=== PATIENT | female | born 1970 | race Caucasian/White ===

== ENCOUNTER 2016-11-18 16:28 | Observation (INO) | payer OTHER ==
--- NOTE | 2016-11-18 17:12 | PDOC ---
History of Present Illness - General History Source: Patient Exam Limitations: No Limitations <Mayra Roldan - Last Filed: 11/18/16 17:56> - History of Present Illness Initial Comments: 11/18/16 18:01 The patient is a 46 year old female with no past medical hx who was send to the ED from her PCP for a blood transfusion. The patient states 8 days ago she started to feel very cold, lightheaded, and tired. The patient reports she started her menstrual cycle on Sunday (8 days ago) and started to notice her symptoms. She reports she has a hx of heavy menses. She notes a few days later her family member said she looked very pale and did not look well. She notes she then made an appointment for a physical with Dr. Carter. She states Dr. Carter called her after her bloodwork came in and reports her hemoglobin was a level of 4.9. She reports her baseline hemoglobin levels are 10-11. She states she then went back in three days ago for new blood work. She states Dr. Carter called her today to go to the ED for a transfusion. The patient denies chest pain, SOB, headache The patient denies abdominal pain, nausea, vomiting The patient denies hematochezia, melena PCP: Dr. Carter <Seema Oliveira - Last Filed: 11/18/16 18:29> - General Chief Complaint: Blood Transfusion Stated Complaint: PCP SENT/BLOOD TRANSFUSION Time Seen by Provider: 11/18/16 16:46 Past History - Past Medical History Anemia: Yes - Psycho/Social/Smoking Cessation Hx Suicidal Ideation: No Smoking History: Current every day smoker Have you smoked in the past 12 months: Yes Number of Cigarettes Smoked Daily: 7 Information on smoking cessation initiated: No <Mayra Roldan - Last Filed: 11/18/16 17:56> <Seema Oliveira - Last Filed: 11/18/16 18:29> - Past Medical History Allergies/Adverse Reactions: Allergies Allergy/AdvReac Type Severity Reaction Status Date / Time cefaclor [From Ceclor] Allergy Severe Difficulty Verified 11/18/16 16:30 Breathing Home Medications: Ambulatory Orders NK [No Known Home Medication] 11/18/16 Review of Systems - Review of Systems Able to Perform ROS?: Yes Comments:: 11/18/16 18:02 GENERAL/CONSTITUTIONAL:+Tired, cold. No: fever, chills, loss of appetite. HEAD, EYES, EARS, NOSE AND THROAT: No: change in vision, ear pain, discharge, sore throat, throat swelling. CARDIOVASCULAR: No: chest pain, lightheadedness, palpitations, syncope RESPIRATORY: No: cough, shortness of breath, wheezing, hemoptysis, stridor. GASTROINTESTINAL: No: nausea, vomiting, abdominal cramping, diarrhea, rectal bleeding, constipation. GENITOURINARY: No: dysuria, hematuria, frequency, urgency, flank pain. MUSCULOSKELETAL: No: back pain, neck pain, joint pain, muscle swelling or pain SKIN: No: lesions, pallor, rash or easy bruising. NEUROLOGIC:+Lightheaded No: headache, paresthesias ENDOCRINE: No: unexplained weight gain or loss HEMATOLOGIC/LYMPHATIC: No: anemia, easy bleeding, swelling nodes <Seema Oliveira - Last Filed: 11/18/16 18:29> *Physical Exam - Vital Signs Last Vital Signs Temp Pulse Resp BP Pulse Ox 98.1 F 90 17 129/67 97 11/18/16 16:31 11/18/16 16:31 11/18/16 16:31 11/18/16 16:31 11/18/16 16:31 <Mayra Roldan - Last Filed: 11/18/16 17:56> - Vital Signs Last Vital Signs Temp Pulse Resp BP Pulse Ox 98.1 F 90 17 129/67 97 11/18/16 16:31 11/18/16 16:31 11/18/16 16:31 11/18/16 16:31 11/18/16 16:31 - Physical Exam Comments: 11/18/16 18:29 GENERAL: The patient is in no acute distress. HEAD: Normal with no signs of trauma. EYES: PERRLA, EOMI, sclera anicteric, conjunctiva clear. ENT: Ears normal, nares patent, oropharynx clear without exudates. Moist mucous membranes. NECK: Normal range of motion, supple without lymphadenopathy, JVD, or masses. LUNGS: Breath sounds equal, clear to auscultation bilaterally. No wheezes, and no crackles. HEART:Regular rate and rhythm, normal S1 and S2 without murmur, rub or gallop. ABDOMEN: Soft, nontender, normoactive bowel sounds. No guarding, no rebound. EXTREMITIES: Normal range of motion, no edema. No clubbing or cyanosis. No erythema, or tenderness. NEUROLOGICAL: Cranial nerves II through XII grossly intact. Normal speech. No focal neurological deficits. MUSCULOSKELETAL: Back nontender to palpation, no CVA tenderness SKIN: Warm, Dry, normal turgor, no rashes or lesions noted. <Seema Oliveira - Last Filed: 11/18/16 18:29> Heart Score/ECG Review #1 ECG reviewed & interpreted by me at: 17:57 General ECG Interpretation: Sinus Rhythm, Normal Rate, Normal Intervals, No acute ischemic changes <Mayra Roldan - Last Filed: 11/18/16 17:56> ED Treatment Course - LABORATORY CBC & Chemistry Diagram: 11/18/16 17:00 11/18/16 17:00 - RADIOLOGY Radiology Studies Ordered: Category Date Time Status CHEST X-RAY PORTABLE* [RAD] Stat Radiology 11/18/16 16:46 Ordered <Mayra Roldan - Last Filed: 11/18/16 17:56> - LABORATORY CBC & Chemistry Diagram: 11/18/16 17:00 11/18/16 17:00 - ADDITIONAL ORDERS Additional order review: Laboratory Results 11/18/16 11/18/16 11/18/16 17:00 17:00 17:00 INR Sodium 142 Potassium 4.3 Chloride 108 H Carbon Dioxide 28 Anion Gap 6 L BUN 8 Creatinine 0.6 Creat Clearance w eGFR > 60 Random Glucose 90 Calcium 8.5 Total Bilirubin 0.2 AST 23 ALT 30 Alkaline Phosphatase 88 Total Protein 6.9 Albumin 3.9 Serum , Qual Negative Crossmatch See Detail 11/18/16 17:00 INR 1.13 Sodium Potassium Chloride Carbon Dioxide Anion Gap BUN Creatinine Creat Clearance w eGFR Random Glucose Calcium Total Bilirubin AST ALT Alkaline Phosphatase Total Protein Albumin Serum , Qual Crossmatch 11/18/16 17:00 RBC 2.69 L MCV 67.0 L MCHC 29.3 L RDW 23.1 H MPV 8.4 Neutrophils % 66.9 Lymphocytes % 24.3 Monocytes % 5.9 Eosinophils % 2.2 Basophils % 0.7 <Seema Oliveira - Last Filed: 11/18/16 18:29> Medical Decision Making - Medical Decision Making 11/18/16 17:11 A portion of this note was documented by scribe services under my direction. I have reviewed the details of the note, within reason, and agree with the documentation with the following case summary and management plan written by me. Nursing documentation reviewed and incorporated into medical decision making This is a 46 yo F with a history of anemia (baseline 10-11) Pt has noted that she has been weak, dizzy and cold for the past few days Recently had her period (which is heavy) She has previously been worked up for this, told that she had small fibroids Plan was not for surgical resection at the time 11/18/16 17:29 Laboratory Tests 11/18/16 17:00 WBC 4.0 Hgb 5.3 L* Hct 18.1 L Plt Count [address] Carter Will order transfusion He will place patient on observation to his service Clinical impression: Anemia <Mayra Roldan - Last Filed: 11/18/16 17:56> *DC/Admit/Observation/Transfer - Discharge Dispostion Admit: Yes <Mayra Roldan - Last Filed: 11/18/16 17:56> - Attestations Scribe Attestion: 11/18/16 18:01 Documentation prepared by Seema Oliveira, acting as medical office supervisor for Mayra Roldan MD/DO. <Seema Oliveira - Last Filed: 11/18/16 18:29> Diagnosis at time of Disposition: Anemia Qualifiers: Iron deficiency anemia type: other iron deficiency - Discharge Dispostion Condition at time of disposition: Stable - Referrals Referrals: Kita Carter MD [Primary Care Provider] -
[2016-11-18 17:21] LABS: BASOPHIL 0.7 % (0-2.0); EOSINOPHIL 2.2 % (0-4.5); MCHC 29.3 g/dl (32.0-36.0); MEAN PLT VOLUME 8.4 fl (7.5-11.1); NEUTROPHILS 66.9 % (42.8-82.8); PLATELET COUNT 311 K/MM3 (134-434); RDW 23.1 % (11.6-15.6)
[2016-11-18 17:23] LABS: MCH 19.7 pg (25.7-33.7)
[2016-11-18 17:35] LABS: INR 1.13 (0.82-1.09); PROTHROMBIN TIME (PATIENT) 12.5 SEC (9.98-11.88)
[2016-11-18 17:46] LABS: ALBUMIN 3.9 g/dl (3.4-5.0); ALK PHOS 88 U/L (45-117); ANION GAP 6 (8-16); BILIRUBIN,TOTAL 0.2 mg/dL (0.2-1.0); CALCIUM 8.5 mg/dL (8.5-10.1); CO2 28 mmol/L (21-32); CREATININE 0.6 mg/dL (0.55-1.02); GLUCOSE,RANDOM 90 mg/dL (74-106); SGOT/AST 23 U/L (15-37); SGPT/ALT 30 U/L (12-78); TOT PROT 6.9 g/dl (6.4-8.2)
[2016-11-18 18:33] LABS: HYPOCHROMIA 3+; PLATELET ESTIMATE ADEQUATE (NORMAL); POIKILOCYTOSIS 2+; POLYCHROMASIA 1+
[2016-11-18 18:34] LABS: ANISOCYTOSIS 3+; MICROCYTOSIS 1+; OVALOCYTES 2+; TEAR DROP CELLS 1+
[2016-11-18] MEDS ORDERED: INFLUENZA VACCINE 45 MCG/0.5 ML (MDV 16-17) IM ONE (20:24)
[2016-11-18 20:50] VITALS: BMI 31.4
[2016-11-18] MEDS: ACETAMINOPHEN 325 MG TABLET (FP) PO PRN (22:48)
[2016-11-19] MEDS: ACETAMINOPHEN 325 MG TABLET (FP) PO PRN (06:07)
[2016-11-19 08:33] LABS: MCH 23.7 pg (25.7-33.7); MCHC 32.2 g/dl (32.0-36.0); MEAN CELL VOLUME 73.6 fl (80-96); MEAN PLT VOLUME 8.3 fl (7.5-11.1); PLATELET COUNT 247 K/MM3 (134-434); RDW 23.7 % (11.6-15.6); WHITE BLOOD COUNT 4.8 K/mm3 (4.0-10.0)
--- NOTE | 2016-11-19 13:10 | DS ---
Physical Examination Vital Signs: Vital Signs Temperature 98.2 F 11/19/16 03:30 Pulse Rate 75 11/19/16 03:30 Respiratory Rate 18 11/19/16 03:30 Blood Pressure 115/59 11/19/16 03:30 O2 Sat by Pulse Oximetry (%) 98 11/18/16 20:53 Findings/Remarks: Admitted with anemia Ab 5.1 ,received 3units of PRBC This am Hb is 8.1 DC home on iron and Vit C [employer]AKER follow up to evaluate excessive vaginal bleeding Constitutional: Yes: Well Nourished Eyes: Yes: WNL HENT: Yes: WNL Neck: Yes: WNL Cardiovascular: Yes: WNL Respiratory: Yes: WNL Gastrointestinal: Yes: WNL ...Rectal Exam: Yes: WNL Renal/: Yes: WNL Breast(s): Yes: WNL Musculoskeletal: Yes: WNL Extremities: Yes: WNL Edema: Yes Peripheral Pulses WNL: Yes Labs: CBC, BMP 11/19/16 07:30 Discharge Summary Reason For Visit: ANEMIA Current Active Problems Anemia (Acute) Condition: Stable - Instructions Referrals: Kita Carter MD [Primary Care Provider] - - Home Medications Comprehensive Discharge Medication List: Ambulatory Orders NK [No Known Home Medication] 11/18/16
--- NOTE | 2016-11-19 13:26 | HP ---
Admitting History and Physical - Admission Chief Complaint: anemia History of Present Illness: 46 year old female exessive vaginal bleeding,Hb 4.6 Admitted for blood trasfussion Received 3units of PRBC History Source: Patient Limitations to Obtaining History: No Limitations - Past Medical History ...LMP: 11/10/16 ...LMP Comment: heavy bleeding ...: No Heme/Onc: Yes: Anemia - Smoking History Smoking history: Current every day smoker Have you smoked in the past 12 months: Yes Aproximately how many cigarettes per day: 7 - Alcohol/Substance Use Hx Alcohol Use: No - Social History History of Recent Travel: No Home Medications - Allergies Allergies/Adverse Reactions: Allergies Allergy/AdvReac Type Severity Reaction Status Date / Time cefaclor [From Ceclor] Allergy Severe Difficulty Verified 11/18/16 16:30 Breathing - Home Medications Home Medications: Ambulatory Orders Acetaminophen [Tylenol .Regular Strength -] 650 mg PO Q6H PRN #30 tablet Physical Examination Vital Signs: Vital Signs Temperature 98.2 F 11/19/16 03:30 Pulse Rate 75 11/19/16 03:30 Respiratory Rate 18 11/19/16 03:30 Blood Pressure 115/59 11/19/16 03:30 O2 Sat by Pulse Oximetry (%) 98 11/18/16 20:53 Labs: CBC, BMP 11/19/16 07:30
[2016-11-19 16:27] VITALS: BP 98/60; PULSE 80; TEMP 98
--- NOTE | 2016-11-19 20:25 | EKG ---
Test Reason : Blood Pressure : / mmHG Vent. Rate : 081 BPM Atrial Rate : 081 BPM P-R Int : 128 ms QRS Dur : 082 ms QT Int : 392 ms P-R-T Axes : -07 047 036 degrees QTc Int : 455 ms NORMAL SINUS RHYTHM NORMAL ECG NO PREVIOUS ECGS AVAILABLE Confirmed by EMPERATRIZ MONROY MD ([id number]) on 11/19/2016 8:25:25 PM Referred By: Confirmed By:EMPERATRIZ MONROY MD
== END 2016-11-19 14:27 | disposition home or self-care (01) ==
LOC: JER 16:28 → JERBED 17:54 → UNDOADMOB 18:00 → JERBED 18:00 → J5S 19:24
PROVIDERS: ADMIT Internal Medicine; ATTEND Internal Medicine
PROC: 30233N1 Transfusion of Nonautologous Red Blood Cells into Peripheral Vein, Percutaneous Approach (ICD-10-PCS; principal; 2016-11-18)
DX: D64.9 Anemia, unspecified (principal); F17.210 Nicotine dependence, cigarettes, uncomplicated; N93.8 Other specified abnormal uterine and vaginal bleeding
CPT/HCPCS: 36430; P9021; 36415; 71010-TC; 80053; 84703; 85025; 85027; 85610; 86850; 86900; 86901; 86922; 93005; 93010; 99285-25; G0378; P9038; P9058; Q2037

== ENCOUNTER 2018-03-01 16:34 | Observation (INO) | payer OTHER ==
--- NOTE | 2018-03-01 16:38 | PDOC ---
Rapid Medical Evaluation Time Seen by Provider: 03/01/18 16:34 Medical Evaluation: Allergies Allergy/AdvReac Type Severity Reaction Status Date / Time cefaclor [From [facility]] Allergy Severe Difficulty Verified 11/18/16 16:30 Breathing 03/01/18 16:34 I have performed a brief in-person evaluation of this patient. The patient presents with a chief complaint of: anemia 2/2 vaginal bleeding Pertinent physical exam findings: Pallor present. Jaundiced. I have ordered the following: labs, T&S, urine, packed cells The patient will proceed to the ED for further evaluation. Discharge Disposition - Diagnosis Anemia - Referrals - Patient Instructions - Post Discharge Activity
--- NOTE | 2018-03-01 17:22 | PDOC ---
History of Present Illness - General Chief Complaint: Revisit, Lab Variance Stated Complaint: PCP SENT Time Seen by Provider: 03/01/18 16:34 - History of Present Illness Initial Comments: 03/01/18 17:13 Ms. Burns is a 48 yo female w/ prior anemia requiring transfusions who presents for evaluation of noted anemia by PCP. She reports she is currently experiencing no symptoms however was told she needs 4 units of blood per Dr. Carter. She is currently on day 5 of her period, blood was drawn on day 2. Her periods typically last for 7 days. The patient denies chest pain, shortness of breath, headache and dizziness. Denies fever, chills, nausea, vomit, diarrhea and constipation. Denies dysuria, frequency, urgency and hematuria. Allergies: Cefaclor, Penicillin Past History - Past Medical History Allergies/Adverse Reactions: Allergies Allergy/AdvReac Type Severity Reaction Status Date / Time cefaclor [From Ceclor] Allergy Severe Difficulty Verified 03/01/18 16:36 Breathing Penicillins Allergy Verified 03/01/18 16:36 Home Medications: Ambulatory Orders Acetaminophen [Tylenol .Regular Strength -] 650 mg PO Q6H PRN #30 tablet Anemia: Yes COPD: No - Immunization History Immunization Up to Date: Yes - Suicide/Smoking/Psychosocial Hx Smoking History: Current some day smoker Have you smoked in the past 12 months: Yes Number of Cigarettes Smoked Daily: 7 Information on smoking cessation initiated: No 'Breaking Loose' booklet given: 11/18/16 Hx Alcohol Use: No Drug/Substance Use Hx: No Review of Systems - Review of Systems Comments:: 03/01/18 17:22 GENERAL/CONSTITUTIONAL: No fever or chills. No weakness. HEAD, EYES, EARS, NOSE AND THROAT: No change in vision. No ear pain or discharge. No sore throat. CARDIOVASCULAR: No chest pain or shortness of breath RESPIRATORY: No cough, wheezing, or hemoptysis. GASTROINTESTINAL: No nausea, vomiting, diarrhea or constipation. GENITOURINARY: No dysuria, frequency, or change in urination. MUSCULOSKELETAL: No joint or muscle swelling or pain. No neck or back pain. SKIN: No rash NEUROLOGIC: No headache, vertigo, loss of consciousness, or change in strength/ sensation. ENDOCRINE: No increased thirst. No abnormal weight change HEMATOLOGIC/LYMPHATIC: No anemia, easy bleeding, or history of blood clots. ALLERGIC/IMMUNOLOGIC: No hives or skin allergy. *Physical Exam - Vital Signs Last Vital Signs Temp Pulse Resp BP Pulse Ox 98.8 F 101 H 18 145/114 100 03/01/18 16:37 03/01/18 16:37 03/01/18 16:37 03/01/18 16:37 03/01/18 16:37 - Physical Exam Comments: 03/01/18 17:22 GENERAL: +General pallor noted. Awake, alert, and fully oriented, in no acute distress HEAD: No signs of trauma, normocephalic, atraumatic EYES: PERRLA, EOMI, sclera anicteric, conjunctiva clear ENT: Auricles normal inspection, hearing grossly normal, nares patent, oropharynx clear without exudates. Moist mucosa NECK: Normal ROM, supple, no lymphadenopathy, JVD, or masses LUNGS: No distress, speaks full sentences, clear to auscultation bilaterally HEART: Regular rate and rhythm, normal S1 and S2, no murmurs, rubs or gallops, peripheral pulses normal and equal bilaterally. ABDOMEN: Soft, nontender, normoactive bowel sounds. No guarding, no rebound. No masses EXTREMITIES: Normal inspection, Normal range of motion, no edema. No clubbing or cyanosis. NEUROLOGICAL: Cranial nerves II through XII grossly intact. Normal speech, normal gait, no focal sensorimotor deficits SKIN: Warm, Dry, normal turgor, no rashes or lesions noted. ED Treatment Course - LABORATORY CBC & Chemistry Diagram: 03/01/18 17:03 03/01/18 17:03 Medical Decision Making - Medical Decision Making 03/01/18 18:05 Ms. Burns is a 48 yo female w/ pmh as described who presents for evaluation of noted anemia in office. Hemoglobin 3.7. 4 units ordered. PCP paged. 03/01/18 18:[address] Diego (covering for Dr. Carter) who would like patient admitted for obs during transfusions. Admitting. *DC/Admit/Observation/Transfer Diagnosis at time of Disposition: Anemia Qualifiers: Anemia type: unspecified type Qualified Code(s): D64.9 - Anemia, unspecified - Discharge Dispostion Decision to Admit order: Yes - Referrals Referrals: Kita Carter MD [Primary Care Provider] - - Patient Instructions - Post Discharge Activity
[2018-03-01 17:57] LABS: BASO % 1.1 % (0-2.0); LYMPH % 32.9 % (8-40); MCHC 28.9 g/dl (32.0-36.0); MEAN CELL VOLUME 65.9 fl (80-96); MEAN PLT VOLUME 8.4 fl (7.5-11.1); MONO % 5.7 % (3.8-10.2); NEUT % 58.3 % (42.8-82.8); PLATELET COUNT 305 K/MM3 (134-434); RBC 1.93 M/mm3 (3.60-5.2); RDW 21.4 % (11.6-15.6); WHITE BLOOD COUNT 3.7 K/mm3 (4.0-10.0)
[2018-03-01 18:00] LABS: MCH 19.1 pg (25.7-33.7)
[2018-03-01 18:02] LABS: ADD RBC MORPHOLOGY YES; HEMATOCRIT 12.7 % (32.4-45.2); HEMOGLOBIN 3.7 GM/dL (10.7-15.3)
[2018-03-01 18:09] LABS: INR 1.11 (0.82-1.09); PROTHROMBIN TIME (PATIENT) 12.5 SEC (9.7-13.0)
[2018-03-01 18:11] LABS: ALBUMIN 3.8 g/dl (3.4-5.0); ANION GAP 7 (8-16); CALCIUM 8.5 mg/dL (8.5-10.1); CHLORIDE 107 mmol/L (98-107); CO2 23 mmol/L (21-32); CREATININE 0.5 mg/dL (0.55-1.02); GLUCOSE,RANDOM 90 mg/dL (74-106); POTASSIUM 4.2 mmol/L (3.5-5.1); SGOT/AST 11 U/L (15-37); SODIUM 137 mmol/L (136-145); TOT PROT 6.7 g/dl (6.4-8.2)
[2018-03-01 18:21] LABS: ALK PHOS 82 U/L (45-117); BILIRUBIN,TOTAL 0.3 mg/dL (0.2-1.0); BLOOD UREA NITROGEN 15 mg/dL (7-18); SGPT/ALT 17 U/L (12-78)
[2018-03-01 19:11] LABS: ANISOCYTOSIS 2+; MACROCYTOSIS 1+; OVALOCYTE 1+
[2018-03-01 19:12] LABS: PLATELET ESTIMATE ADEQUATE
--- NOTE | 2018-03-01 19:42 | PDOC ---
Attending Attestation - Resident Resident Name: Servando Coon - ED Attending Attestation I have performed the following: I have examined & evaluated the patient, The case was reviewed & discussed with the resident, I agree w/resident's findings & plan, Exceptions are as noted - Medical Decision Making 03/01/18 19:42 48yoF w/ chronic anemia and occasional transfuion requirements 2/2 severe menorrhagia presnets w/ same, hgb outpatient 4's. - labs - PRBC - admit <Tami Valera - Last Filed: 03/01/18 19:41> - HPI HPI: 03/01/18 19:43 The patient is a 48 year old female with a significant PMH of anemia who presents to the emergency department with for evaluation of noted anemia by PCP requiring transfusions. The patient reports that she was told by her PCP to come to the ED because of her need for 4 units of blood. The patients reports that she she is currently on her 5th day of her period and that it usually last 12 days. The patient denies any symptoms at time of exam. The patient also reports that she has been experiencing ringing in her ears when she puts her head down and up. She denies any other symptoms. She denies any chest pain, shortness of breath, headache and dizziness.she denies fever, chills, nausea, vomit, diarrhea, constipation or urinary symptoms. The patient denies any other complaints. PCP: Dr. Carter - Physicial Exam PE: 03/01/18 19:44 General Physical Exam: NAD EOMI, LIZZY MMM, OP WNL NECK:NCAT, no midline cervical tenderness RRR, nl s1/s2, no m/r/g CTABL, no w/r/r Soft, NTND No edema, WWP, no rash Neuro grossly intact, gait WNL, moving all 4 A&O x 3, mood/affect WNL. Documentation prepared by Carlos Alberto Gamboa, acting as medical van driver for Tami Valera MD. <Carlos Alberto Gamboa - Last Filed: 03/01/18 19:44>
[2018-03-01] MEDS ORDERED: ONDANSETRON 4 MG/2 ML VIAL IVPUSH ONE (20:24)
[2018-03-01] MEDS ORDERED: ONDANSETRON 4 MG/2 ML VIAL ONE (20:26)
[2018-03-01 20:28] LABS: HCG,QUALITATIVE URINE NEGATIVE
[2018-03-01 20:43] LABS: URINE APPEARANCE CLEAR; URINE BILIRUBIN NEGATIVE (<2.0 mg/dL); URINE COLOR STRAW; URINE GLUCOSE (UA) NEGATIVE (NEGATIVE); URINE KETONE NEGATIVE (NEGATIVE); URINE LEUK ESTERASE NEGATIVE (NEGATIVE); URINE NITRITE NEGATIVE (NEGATIVE); URINE PROTEIN NEGATIVE (NEGATIVE); URINE UROBILINOGEN NEGATIVE mg/dL (0.2-1.0)
[2018-03-01 22:15] VITALS: BMI 31.1
[2018-03-02 14:02] VITALS: BP 114/65; PULSE 67; TEMP 98.9
[2018-03-02] MEDS ORDERED: ACETAMINOPHEN 325 MG TABLET (FP) PO PRN (14:11)
--- NOTE | 2018-03-02 14:24 | HP ---
Admitting History and Physical - Primary Care Physician PCP: Kita Carter - Admission Chief Complaint: Feeling Dizzy History of Present Illness: 48 yrs old F with H/O Fibroid uterus, DUB excessive menstrual bleeding last for 7-10 days heavy bleeding but regular cycles, at present patient is day 7th of menstruation, few days ago visited PMD office lab shows very low H/H so called back to visit ED for PRBC transfusion, on arrival to ED C/o Dizziness denies any chest pain, palpitations, SOB , in the ED H/H 3.7and 12.7 admitted for blood transfusion. History Source: Patient Limitations to Obtaining History: No Limitations - Past Medical History CREDIT CONTROL CLERK: No: Dementia, Migraine, Multiple Sclerosis Cardiovascular: No: Aneurysm, Aortic Insufficiency, Aortic Stenosis Pulmonary: No: Bronchitis, Cancer, COPD Gastrointestinal: No: Ascites, Cancer, Constipation, Crohn's Disease, Diverticulitis Hepatobiliary: No: Cholelithiasis, Cholecystitis, Choledocholithiasis Renal/: No: Renal Inusuff, Cancer, Hematuria Reproductive: Yes: Fibroids ...LMP: 02/07/18 ...: No Heme/Onc: Yes: Anemia Infectious Disease: No: AIDS, C-Diff Rheumatology: No: Fibromyalgia, Gout, Lupus ENT: No: Allergic Rhinitis, Sinusitis Endocrine: No: Cook's Disease, Faisal's Disease, Diabetes Insipidus, Diabetes Mellitus, Hyperparathyroidism - Smoking History Smoking history: Current some day smoker Have you smoked in the past 12 months: Yes Aproximately how many cigarettes per day: 7 - Alcohol/Substance Use Hx Alcohol Use: No - Social History History of Recent Travel: No Home Medications - Allergies Allergies/Adverse Reactions: Allergies Allergy/AdvReac Type Severity Reaction Status Date / Time [facility] Allergy Severe Difficulty Verified 03/01/18 16:36 Breathing Penicillins Allergy Verified 03/01/18 16:36 - Home Medications Home Medications: Ambulatory Orders Acetaminophen [Tylenol .Regular Strength -] 650 mg PO Q6H PRN #30 tablet Ferrous Sulfate [Feosol] 325 mg PO TIDCM ud 03/02/18 Family Disease History - Family Disease History Family History: Unremarkable Review of Systems - Review of Systems Constitutional: denies: Chills, Diaphoresis, Loss of Appetite, Night Sweats, Unintentional Wgt. Loss Eyes: denies: Blind Spots, Blurred Vision, Eye Pain HENT: denies: Difficult Swallowing, Ear Discharge, Ear Pain Neck: denies: Decreased ROM, Lumps, Pain on Movement Cardiovascular: denies: No Symptoms, Chest Pain, Edema, Palpitations Respiratory: reports: No Symptoms. denies: Cough, Exercise Intolerance Gastrointestinal: denies: Abdominal Pain, Bloating, Constipation Physical Examination Vital Signs: Vital Signs Temperature 98.9 F 03/02/18 14:02 Pulse Rate 67 03/02/18 14:02 Respiratory Rate 20 03/02/18 14:02 Blood Pressure 114/65 03/02/18 14:02 O2 Sat by Pulse Oximetry (%) 100 03/02/18 07:41 Constitutional: Yes: Well Nourished, No Distress, Calm, Pallor. No: Anxious Eyes: Yes: Conjunctiva Clear, EOM Intact HENT: Yes: Atraumatic, Normocephalic. No: Drooling Neck: Yes: Supple, Trachea Midline. No: Decreased ROM, Lymphadenopathy Cardiovascular: Yes: Regular Rate and Rhythm, S1, S2. No: JVD, Gallop, Murmur Respiratory: Yes: Regular, CTA Bilaterally Gastrointestinal: Yes: Normal Bowel Sounds, Soft Breast(s): Yes: WNL Musculoskeletal: Yes: WNL. No: Back Pain, Joint Stiffness Edema: No Peripheral Pulses: Left Doralis Pedis: 2+, Right Dorsalis Pedis: 2+ Integumentary: Yes: WNL Neurological: Yes: Alert, Oriented. No: Aphasia, Asterixis ...Motor Strength: WNL, LUE, LLE, RUE, RLE Psychiatric: Yes: Alert, Oriented. No: Agitated Labs: CBC, BMP 03/01/18 17:03 03/01/18 17:03 Imaging - Results Chest X-ray: Report Reviewed (Normal) Problem List - Problems (1) Severe anemia Code(s): D64.9 - ANEMIA, UNSPECIFIED (2) Anemia due to blood loss Code(s): D50.0 - IRON DEFICIENCY ANEMIA SECONDARY TO BLOOD LOSS (CHRONIC) (3) DUB (dysfunctional uterine bleeding) Code(s): N93.8 - OTHER SPECIFIED ABNORMAL UTERINE AND VAGINAL BLEEDING
[2018-03-02 16:01] LABS: BASO % 0.7 % (0-2.0); EOS % 2.1 % (0-4.5); HEMATOCRIT 28.2 % (32.4-45.2); HEMOGLOBIN 9.2 GM/dL (10.7-15.3); LYMPH % 25.7 % (8-40); MCH 24.2 pg (25.7-33.7); MCHC 32.8 g/dl (32.0-36.0); MEAN CELL VOLUME 73.7 fl (80-96); MEAN PLT VOLUME 8.8 fl (7.5-11.1); MONO % 5.6 % (3.8-10.2); NEUT % 65.9 % (42.8-82.8); PLATELET COUNT 256 K/MM3 (134-434); RBC 3.82 M/mm3 (3.60-5.2); RDW 19.5 % (11.6-15.6); WHITE BLOOD COUNT 4.8 K/mm3 (4.0-10.0)
[2018-03-02] MEDS ORDERED: FERROUS SO4 325 MG TABLET (FP) PO SCH (17:30)
--- NOTE | 2018-03-02 17:51 | EKG ---
Test Reason : Blood Pressure : / mmHG Vent. Rate : 084 BPM Atrial Rate : 084 BPM P-R Int : 118 ms QRS Dur : 084 ms QT Int : 404 ms P-R-T Axes : -15 022 018 degrees QTc Int : 477 ms NORMAL SINUS RHYTHM NORMAL ECG WHEN COMPARED WITH ECG OF 18-NOV-2016 17:10, NO SIGNIFICANT CHANGE WAS FOUND Confirmed by LETICIA JOHNSON MD ([id number]) on 03/02/2018 5:51:17 PM Referred By: Confirmed By:LETICIA JOHNSON MD
--- NOTE | 2018-03-02 17:51 | DS ---
Physical Examination Vital Signs: Vital Signs Temperature 98.9 F 03/02/18 14:02 Pulse Rate 67 03/02/18 14:02 Respiratory Rate 20 03/02/18 14:02 Blood Pressure 114/65 03/02/18 14:02 O2 Sat by Pulse Oximetry (%) 100 03/02/18 07:41 Constitutional: Yes: Well Nourished, No Distress, Calm, Pallor. No: Anxious Eyes: Yes: Conjunctiva Clear, EOM Intact HENT: Yes: Atraumatic, Normocephalic. No: Drooling Neck: Yes: Supple, Trachea Midline. No: Decreased ROM, Lymphadenopathy Cardiovascular: Yes: Regular Rate and Rhythm, S1, S2. No: JVD, Gallop, Murmur Respiratory: Yes: Regular, CTA Bilaterally Gastrointestinal: Yes: Normal Bowel Sounds, Soft Breast(s): Yes: WNL Musculoskeletal: Yes: WNL. No: Back Pain, Joint Stiffness Edema: No Peripheral Pulses: Left Doralis Pedis: 2+, Right Dorsalis Pedis: 2+ Integumentary: Yes: WNL Neurological: Yes: Alert, Oriented. No: Aphasia, Asterixis ...Motor Strength: WNL, LUE, LLE, RUE, RLE Psychiatric: Yes: Alert, Oriented. No: Agitated Labs: CBC, BMP 03/02/18 15:30 03/01/18 17:03 Discharge Summary Reason For Visit: ANEMIA Current Active Problems Anemia (Acute) Anemia due to blood loss (Acute) DUB (dysfunctional uterine bleeding) (Acute) Severe anemia (Acute) Procedures: Principal: 4 units PRB transfusion - Instructions Diet, Activity, Other Instructions: High [place] Referrals: Kita Carter MD [Primary Care Provider] - - Home Medications Comprehensive Discharge Medication List: Ambulatory Orders Acetaminophen [Tylenol .Regular Strength -] 650 mg PO Q6H PRN #30 tablet Ferrous Sulfate [Feosol] 325 mg PO TIDCM ud 03/02/18
== END 2018-03-02 18:00 | disposition home or self-care (01) ==
LOC: JER 16:34 → JERBED 18:19 → J4W 21:04
PROVIDERS: ADMIT Internal Medicine; ATTEND Internal Medicine
PROC: 30233N1 Transfusion of Nonautologous Red Blood Cells into Peripheral Vein, Percutaneous Approach (ICD-10-PCS; principal; 2018-03-01)
PROC: 3E033GC Introduction of Other Therapeutic Substance into Peripheral Vein, Percutaneous Approach (ICD-10-PCS; 2018-03-01)
DX: D50.0 Iron deficiency anemia secondary to blood loss (chronic) (principal); N93.8 Other specified abnormal uterine and vaginal bleeding; F17.200 Nicotine dependence, unspecified, uncomplicated; Z88.0 Allergy status to penicillin
CPT/HCPCS: 36415; 36430; 71045-TC-FY; 80053; 81003; 82550; 84484; 84703; 85025; 85610; 86850; 86900; 86901; 86922; 93005; 93010; 99285-25; G0378; P9038; P9058